=== PATIENT | male | born 1965 | race Caucasian/White ===

== ENCOUNTER 2022-03-25 10:48 | Emergency (ER) | payer BC ==
[~2022-03-25] VITALS: Ht 170.2 cm; Wt 76.2 kg
[2022-03-25 10:54] VITALS: BP 122/76
--- NOTE | 2022-03-25 11:07 | NUR ---
PT AMBULATED TO BED 7
--- NOTE | 2022-03-25 11:30 | NUR ---
57YO MALE PT C/O INCREASED CONSTANT EPIGASTRIC PAIN [id number]. REPORTS RADIATION TO BACK W/ PAIN AT MOST ON PRESSURE. ABD TENDER AND NON DISTENDED. NOTES OCCASIONAL BLOOD IN STOOL. STATES BEING RECOMMENDED BY PCP TO COME TO ER FOR "CANCER TESTING". DENIES N/V/D, FEVER OR CHILLS. PT AAOX4, NO VISIBLE DISTRESS. 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 HOB POSITIONED PER COMFORT HX: DIABETES NKA
--- NOTE | 2022-03-25 11:33 | NUR ---
MD PARKER AT BEDSIDE FOR EVALUATION
[2022-03-25] MEDS ORDERED: MORPHINE SULFATE 4 MG/ML SYR IVP ONE (11:40)
[2022-03-25 11:42] LABS: BASOPHILS % (AUTO) 0.7 % (0.0-2.0); EOSINOPHILS # (AUTO) 0.2 K/uL (0-0.4); EOSINOPHILS % (AUTO) 3.8 % (0.0-4.0); HEMATOCRIT 42.1 % (36-52); HEMOGLOBIN 14.3 g/dL (12.0-18.0); LYMPHOCYTES # (AUTO) 1.3 K/uL (2.0-11.5); LYMPHOCYTES % (AUTO) 27.2 % (20.5-51.1); MEAN CORPUSCULAR HEMOGLOBIN 31 pg (27-31); MEAN CORPUSCULAR HGB CONC 34 g/dL (33-37); MEAN CORPUSCULAR VOLUME 91.8 fL (80-94); MONOCYTES # (AUTO) 0.4 K/uL (0.8-1.0); NEUTROPHILS # (AUTO) 2.8 K/uL (1.8-7.7); NEUTROPHILS % (AUTO) 60.3 % (42.2-75.2); PLATELET COUNT (AUTO) 114 K/uL (140-450); RED BLOOD CELL COUNT(AUTO) 4.59 MIL/uL (4.20-6.10); RED CELL DISTRIBUTION WIDTH 12.9 % (11.6-13.7); WHITE BLOOD COUNT (AUTO) 4.7 K/uL (4.8-10.8)
[2022-03-25 11:59] LABS: ANION GAP 8.9 (8-16); CARBON DIOXIDE 29.1 mmol/L (21-32); CREATININE 0.7 mg/dL (0.6-1.3); TOTAL BILIRUBIN 0.9 mg/dL (0.0-1.0)
--- NOTE | 2022-03-25 12:10 | NUR ---
57M presents to ED with c/o epigastric and mid back pain x1 month. Pt reports a constant, burning like, 7-8/10 pain radiating to mid back. Pt denies trauma/injury, n/v/d, fevers or chills. Pt reports unplanned weight loss in last 3 months of about 30lbs. Pt denies taking medication today for pain. Pt changed into gown, placed on bedside monitor, bed at lowest position, side rails x2.
[2022-03-25 12:41] LABS: APPEARANCE,URINE CLEAR (CLEAR); BILIRUBIN,URINE NEGATIVE (NEGATIVE); BLOOD, URINE NEGATIVE (NEGATIVE); COLOR,URINE YELLOW (YELLOW); LEUKOCYTE ESTERASE ,URINE NEGATIVE (NEGATIVE); NITRITE, URINE NEGATIVE (NEGATIVE); UGLUCOSE >=1000 (NEGATIVE)
[2022-03-25 13:15] VITALS: BP 112/65
--- NOTE | 2022-03-25 13:45 | NUR ---
pt swabbed for covid(abdon) and flu. walked and handed to lab
[2022-03-25 13:52] LABS: RBC,URINE 0-5 /HPF (0-5); WBC,URINE 0-5 /HPF (0-5)
--- NOTE | 2022-03-25 14:06 | NUR ---
IV removed, catheter intact and site benign. Applied folded 4x4 gauze and tape to stop bleeding.
--- NOTE | 2022-03-25 14:10 | NUR ---
Patient discharged with v/s stable. Written and verbal after care instructions FOR ABD PAIN given and explained. Patient verbalized understanding. Ambulatory with steady gait. All questions addressed prior to discharge. Advised to follow up with PMD.
--- NOTE | 2022-03-25 14:20 | NUR ---
The patient's care was reviewed and supervised by David Chan RN.
== END 2022-03-25 14:10 | disposition home or self-care (01) ==
LOC: MED 10:48
DX: R10.13 Epigastric pain (principal); Z20.822 Contact with and (suspected) exposure to COVID-19; E11.9 Type 2 diabetes mellitus without complications; Z79.4 Long term (current) use of insulin; Z79.899 Other long term (current) drug therapy
CPT/HCPCS: 36415; 71260; 74177; 80053; 81001; 83690; 85025; 87426; 87804; 96374; 99285; J2270; Q9967